=== PATIENT | male | born 1990 | race Caucasian/White ===

== ENCOUNTER 2019-10-18 08:54 | Emergency (ER) | payer BC ==
[~2019-10-18] VITALS: Ht 185.4 cm; Wt 122.5 kg
== END 2019-10-18 10:06 | disposition home or self-care (01) ==
LOC: ED 08:54
DX: K08.89 Other specified disorders of teeth and supporting structures (principal); F17.200 Nicotine dependence, unspecified, uncomplicated

== ENCOUNTER 2024-10-23 04:55 | Emergency (ER) | payer BC ==
[~2024-10-23] VITALS: Ht 187.9 cm; Wt 81.6 kg
[2024-10-23 05:57] LABS: ALKALINE PHOSPHATASE 63 U/L (46-116); BUN 13 mg/dl (9-23); CHLORIDE 108 mmol/L (98-107); POTASSIUM 3.9 mmol/L (3.4-5.1); SGPT/ALT 37 U/L (5-49); TOTAL PROTEIN 6.8 gm/dL (6.0-8.0)
[2024-10-23] MEDS ORDERED: METHOCARBAMOL 500 MG TAB PO ONE (06:05)
[2024-10-23] MEDS ORDERED: methylPREDNISolone sod succ 125 MG VIAL IM ONE (06:05)
[2024-10-23 06:18] LABS: BASO # 0.1 10*3/uL (0.0-0.1); BASO % 0.7 % (0.0-1.0); EOS # 0.3 10*3/uL (0.0-0.4); EOS % 3.4 % (1.0-4.0); HEMATOCRIT 45.8 % (42.0-52.0); MEAN CELL VOLUME 79.8 fl (80.0-94.0); MEAN CORPUSCULAR HGB 26.8 pg (27.0-31.0); MEAN CORPUSCULAR HGB CONC 33.6 g/dl (33.0-37.0); MEAN PLATELET VOLUME 10.6 fl (9.6-12.3); MONO # 0.5 10*3/uL (0.1-1.0); NEUT # 4.7 10*3/uL (2.3-7.9); NEUT % 55.2 % (47.0-73.0); PLATELET COUNT AUTOMATED 222 10*3/uL (130-400); RED BLOOD COUNT 5.74 10*6/uL (4.50-5.90); RED CELL DISTRI WIDTH 12.8 % (0-14.5); WHITE BLOOD COUNT 8.4 10*3/uL (4.8-10.8)
[2024-10-23] MEDS ORDERED: MELOXICAM15 MG PO (07:42)
== END 2024-10-23 08:27 | disposition home or self-care (01) ==
LOC: ED 04:55
PROVIDERS: Internal Medicine
DX: M79.602 Pain in left arm (principal); R20.0 Anesthesia of skin; R07.89 Other chest pain; X50.0XXA Overexertion from strenuous movement or load, initial encounter; Y93.89 Activity, other specified; Y92.89 Other specified places as the place of occurrence of the external cause; Y99.8 Other external cause status